=== PATIENT | female | born 1955 | race Caucasian/White ===

== ENCOUNTER → 2016-04-17 | Day surgery (SDC) | payer OTHER | END | disposition home or self-care (01) | LOC: SDCH 09:51 | DX: K57.30 Diverticulosis of large intestine without perforation or abscess without bleeding (principal); K64.8 Other hemorrhoids; I10 Essential (primary) hypertension; Z52.4 Kidney donor; Z79.52 Long term (current) use of systemic steroids; Z88.2 Allergy status to sulfonamides; M19.90 Unspecified osteoarthritis, unspecified site | CPT/HCPCS: J0360; J2704 ==